=== PATIENT | male | born 1995 | race Hispanic/Latino ===

== ENCOUNTER → 2022-01-12 | Day surgery (SDC) | payer BC, OTHER ==
[~2022-01-12] MED LIST: DEXAMETHASONE SOD PHOS INJ 4 MG/ML SDV IV ONE; FENTANYL CITRATE/PF 100MCG/2 ML INJ ONE; HYDROCODONE/APAP 5MG-325MG TAB PO PRN; HYDROMORPHONE 1MG/1ML INJ ONE; LIDOCAINE HCL 2% LOCAL INJ 5 ML SDV VIAL INJ ONE; MEPERIDINE HCL INJ 25 MG/ML VIAL ONE; MIDAZOLAM HCL 2 MG/2 ML VIAL ONE; Morphine 4mg INJECTION 4 MG/ML INJ ONE; ONDANSETRON HCL INJ 2MG/ML 2ML 2 MG/ML VIAL IV ONE; POVIDONE IODINE 0.05% 0.05 % ML PO ONE; PROPOFOL IV EMULSION 10 MG/ML 20 ML VIAL IV ONE; SEVOFLURANE INHAL SOLN 250 ML PEN BTL INH ONE; [UNRECOGNIZED DRUG - OTHER] PO; [UNRECOGNIZED DRUG - OTHER] PO
[2022-01-12 14:00] VITALS: BP 121/81
== END | disposition home or self-care (01) ==
LOC: OR 07:56
PROVIDERS: ATTEND Specialist
DX: S62.324A Displaced fracture of shaft of fourth metacarpal bone, right hand, initial encounter for closed fracture (principal); F17.210 Nicotine dependence, cigarettes, uncomplicated; W54.1XXA Struck by dog, initial encounter; W18.39XA Other fall on same level, initial encounter; Y93.89 Activity, other specified; Y99.8 Other external cause status
CPT/HCPCS: 26615; C1713 ×2; J0690; J1100; J1170; J2001; J2175; J2250; J2270; J2405; J2704; J3010; 76000